=== PATIENT | female | born 1990 | race Caucasian/White ===

== ENCOUNTER 2023-09-26 01:06 | Emergency (ER) | payer OTHER ==
[~2023-09-26] VITALS: Ht 160 cm; Wt 104.3 kg
[2023-09-26 01:19] VITALS: BP_SYST 113; PULSE 86; RESP 18; TEMP 98.3; O2SAT 99
[2023-09-26 01:59] LABS: BILIRUBIN,URINE NEGATIVE (NEGATIVE); BLOOD, URINE NEGATIVE (NEGATIVE); CLARITY/URINE CLEAR (CLEAR); COLOR,URINE YELLOW (YELLOW); GLUCOSE,URINE 3+ (NEGATIVE); KETONES,URINE NEGATIVE (NEGATIVE); LEUKOCYTE ESTERASE ,URINE NEGATIVE (NEGATIVE); NITRITE, URINE NEGATIVE (NEGATIVE); PROTEIN URINE NEGATIVE (NEGATIVE); UROBILINOGEN,URINE 0.2 (0.2-1.0)
[2023-09-26 02:20] LABS: BACTERIA,URINE None Seen /HPF (None Seen)
[2023-09-26 02:24] LABS: BASOPHILS # (AUTO) 0.1 K/uL (0.0-0.2); EOSINOPHILS # (AUTO) 0.2 K/uL (0.0-0.4); EOSINOPHILS % (AUTO) 1.7 % (0.0-4.0); HEMATOCRIT 31.1 % (36-48); HEMOGLOBIN 9.9 g/dL (12.0-16.0); LYMPHOCYTES # (AUTO) 2.5 K/uL (1.0-5.5); LYMPHOCYTES % (AUTO) 23.3 % (20.5-51.5); MEAN CORPUSCULAR HEMOGLOBIN 22 pg (27-31); MEAN CORPUSCULAR HGB CONC 32 % (32-36); MEAN CORPUSCULAR VOLUME 69 fL (79.0-98.0); MONOCYTES # (AUTO) 0.7 K/uL (0.0-1.0); MONOCYTES % (AUTO) 6.6 % (1.7-9.3); NEUTROPHILS # (AUTO) 7.2 K/uL (1.8-7.7); NEUTROPHILS % (AUTO) 67.4 % (40.0-70.0); PLATELET COUNT (AUTO) 389 K/uL (130-430); RED BLOOD CELL COUNT(AUTO) 4.52 MIL/uL (4.2-6.2); RED CELL DISTRIBUTION WIDTH 18.4 % (9.0-15.0); WHITE BLOOD COUNT (AUTO) 10.7 K/uL (4.8-10.8)
[2023-09-26 02:27] LABS: CALCIUM 8.3 mg/dL (8.4-11.0); CREATININE 0.91 mg/dL (0.55-1.30); POTASSIUM 4.4 mmol/L (3.5-5.1); TOTAL BILIRUBIN 0.2 mg/dL (0.0-1.0); TOTAL PROTEIN, SERUM 7.8 g/dL (6.4-8.3)
[2023-09-26] MEDS: KETOROLAC TROMETHAMINE 30 MG VIAL IVP ONE (02:38)
[2023-09-26] MEDS: ONDANSETRON HCL 4 MG/2 ML VIAL IVP ONE (03:30)
[2023-09-26] MEDS: MORPHINE 4 MG INJ. 4 MG/ML VIAL IVP ONE (03:37)
[2023-09-26] MEDS: NACL 0.9% 1,000 ML IV ONE (03:48)
[2023-09-26] MEDS ORDERED: LIDOCAINE VISCOUS 2%, 15 ML UDC ONE (04:20)
[2023-09-26] MEDS: MAG HYDROX/AL HYDROX/SIMETH 30 ML, DICYCLOMINE HCL 20 MG, LIDOCAINE VISCOUS 2% 15ML (PO... PO ONE (04:21)
[2023-09-26] MEDS ORDERED: DICY-14 PO (05:23)
[2023-09-26] MEDS ORDERED: ACET-2634 PO (05:23)
[2023-09-26] MEDS: MORPHINE 2 MG/ML INJ. SYRINGE IVP ONE (05:33)
[2023-09-26 05:38] VITALS: BP_SYST 111; PULSE 90; RESP 18; TEMP 98.1; O2SAT 95
== END 2023-09-26 05:38 | disposition home or self-care (01) ==
LOC: SED 01:06
DX: N39.0 Urinary tract infection, site not specified (principal); R10.13 Epigastric pain; R10.11 Right upper quadrant pain; R10.30 Lower abdominal pain, unspecified; E11.9 Type 2 diabetes mellitus without complications; R11.10 Vomiting, unspecified; R19.7 Diarrhea, unspecified; Z79.899 Other long term (current) drug therapy
CPT/HCPCS: 99285; 74177; 96374; 96361; 96375; 80053; 81001; 83690; 85025; 36415; 96376; 81025; 82948; J1885; J2270 ×2; Q9967; J7030; 81000; 81015; J2001